=== PATIENT | female | born 1995 | race Caucasian/White ===

== ENCOUNTER → 2016-10-09 | Outpatient (CLI) | payer OTHER ==
[~2016-10-09] MED LIST: CRY28 PO; ONDA4TAB9 PO
== END | disposition home or self-care (01) ==
LOC: C.PAPS 11:16
PROVIDERS: ATTEND Obstetrics & Gynecology
DX: Z01.419 Encounter for gynecological examination (general) (routine) without abnormal findings (principal)

== ENCOUNTER → 2016-10-23 | Outpatient (CLI) | payer OTHER ==
--- NOTE | 2016-10-23 07:39 | DIAGNOSTIC IMAGING REPORT ---
Right upper quadrant ultrasound GALLBLADDER-ABD LIMITED CLINICAL HISTORY: Pain. Nausea. TECHNIQUE: Ultrasound COMPARISON STUDY: None FINDINGS: Mild fatty infiltration of liver. Negative gallbladder. Biliary ductal system is unremarkable with a maximum common bile duct diameter of 3 mm. Right kidney is negative for hydronephrosis. Pancreas is unremarkable. IMPRESSION: Fatty infiltration of liver. Otherwise negative study Electronically signed by: Cj Meehan M.D. 10/23/2016 7:37 AM Dictated Date/Time: 10/23/2016 7:34 AM
== END | disposition home or self-care (01) ==
LOC: C.ULTR 06:28
PROVIDERS: ATTEND Internal Medicine
DX: R10.11 Right upper quadrant pain (principal); K76.0 Fatty (change of) liver, not elsewhere classified

== ENCOUNTER → 2017-10-20 | Outpatient (CLI) | payer OTHER | END | disposition home or self-care (01) | LOC: C.LABSPEC 15:59 | PROVIDERS: ATTEND Physician Assistant | DX: Z01.419 Encounter for gynecological examination (general) (routine) without abnormal findings (principal) ==

== ENCOUNTER → 2017-10-20 | Outpatient (CLI) | payer OTHER | END | disposition home or self-care (01) | LOC: C.LABSPEC 16:40 | PROVIDERS: ATTEND Physician Assistant | DX: Z01.419 Encounter for gynecological examination (general) (routine) without abnormal findings (principal) ==